=== PATIENT | male | born 2000 | race African-American/Black ===

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

== ENCOUNTER 2018-06-02 01:42 | Emergency (ER) | payer OTHER ==
[~2018-06-02] VITALS: Ht 182.9 cm; Wt 59.0 kg
[2018-06-02 01:52] VITALS: BP 138/74
== END 2018-06-02 06:25 | disposition left against medical advice (07) ==
LOC: EDBD 01:42 → ER 01:45
DX: R06.02 Shortness of breath (principal); Z53.21 Procedure and treatment not carried out due to patient leaving prior to being seen by health care provider
CPT/HCPCS: 71045

== ENCOUNTER 2018-12-30 19:44 | Inpatient (IN) | payer OTHER, MEDICAID ==
[~2018-12-30] VITALS: Ht 182.9 cm; Wt 67.1 kg
[~2018-12-30 19:44] MED LIST changes: -INSLANTI; +INSLANTI SUBCUT; -NOVALOG; +NOVALOG SUBCUT
[2018-12-30 21:24] LABS: Urine Bacteria FEW /hpf (None Seen); Urine Blood Negative /uL (Negative); Urine Specific Gravity 1.027 (1.001-1.035); Urine WBC 13 /hpf (0 - 3)
[2018-12-30 21:38] LABS: Amphetamine Screen, Urine NEGATIVE (NEGATIVE); Cannabinoid Screen, Urine NEGATIVE (NEGATIVE)
[2018-12-30 21:40] LABS: Barbiturate Scree,Urine NEGATIVE (NEGATIVE); Benzodiazephine Screen, Urine NEGATIVE (NEGATIVE); Cocaine Screen, Urine NEGATIVE (NEGATIVE); Opiate Scree,Urine NEGATIVE (NEGATIVE); Phencyclidine Screen, Urine NEGATIVE (NEGATIVE)
[2018-12-30 21:42] LABS: Basophils # (auto) 0 uL; Basophils % (auto) 0.9 % (0.0-2.0); Eosinophils # (auto) 0 uL; Eosinophils % (auto) 0.2 % (0.0-7.0); Hematocrit 40.8 % (41.0-53.0); Hemoglobin 13.3 g/dL (13.5-17.5); Lymphocytes # (auto) 0.8 uL; Lymphocytes % (auto) 17.5 % (10.0-50.0); Mean Corpuscular Hemoglobin 31.6 pg (28.0-32.0); Mean Corpuscular Hgb Conc. 32.7 g/dL (32.0-36.0); Mean Corpuscular Volume 96.8 fL (80.0-100.0); Monocytes # (auto) 0.3 uL; Neutrophils # (auto) 3.5 uL; Neutrophils % (auto) 75.4 % (37.0-80.0); Nucleated Red Blood Cells % 0.1 %; Platelet Count (auto) 262 10^3/uL (140-450); Red Blood Cells 4.22 10^6/uL (4.5-5.90); Red Cell Distribution Width 14.2 % (11.8-14.3); White Blood Cell 4.7 10^3/uL (4.4-10.8)
[2018-12-30 21:55] LABS: Albumin 3.8 g/dL (3.4-5.0); Potassium 4.7 mmol/L (3.5-5.1)
[2018-12-30 22:04] LABS: BUN/Creatinine Ratio 9.1; Bilirubin, Total 1.4 mg/dL (0.2-1.0); Total Protein 7.4 g/dL (6.4-8.2)
[2018-12-30] MEDS: SODIUM CHLORIDE 0.9% 1,000 ML IV SCH (22:42)
[2018-12-30] MEDS ORDERED: DEXTROSE (50%) 50ML SYRG IV PRN (22:45)
[2018-12-30] MEDS ORDERED: InsuLIN REG 1unit/0.01ml Soln (100units/ml) IV ONE (22:45)
[2018-12-30] MEDS ORDERED: SODIUM CHLORIDE 0.9% 2,000 ML IV ONE (22:45)
[2018-12-30] MEDS: InsuLIN R (HUMAN) 100 UNITS in SODIUM CHL 0.9% 99 ML IV SCH (23:09)
[2018-12-30 23:30] LABS: Magnesium 2.3 mg/dL (1.6-2.6)
[2018-12-30 23:46] LABS: Urine Bacteria NONE SEEN /hpf (None Seen); Urine Blood Negative /uL (Negative); Urine Specific Gravity 1.027 (1.001-1.035); Urine WBC 1 /hpf (0 - 3)
[2018-12-30] MEDS: ACCU-CHEK COMFORT CURVE STRIP VI SCH (23:56)
[2018-12-31 00:01] LABS: Alcohol, Urine < 3.0 mg/dL (0-5); Amphetamine Screen, Urine NEGATIVE (NEGATIVE); Barbiturate Scree,Urine NEGATIVE (NEGATIVE); Benzodiazephine Screen, Urine NEGATIVE (NEGATIVE); Cannabinoid Screen, Urine NEGATIVE (NEGATIVE); Cocaine Screen, Urine NEGATIVE (NEGATIVE); Opiate Scree,Urine NEGATIVE (NEGATIVE); Phencyclidine Screen, Urine NEGATIVE (NEGATIVE)
[2018-12-31] MEDS: SODIUM CHLORIDE 0.9% 1,000 ML IV SCH (00:56)
[2018-12-31] MEDS: ACCU-CHEK COMFORT CURVE STRIP VI SCH ×8 (01:11→12:52)
[2018-12-31] MEDS ORDERED: TEMAZEPAM 15 MG CAP PO PRN (02:30)
[2018-12-31] MEDS ORDERED: MORPHINE SULF INJ 2 MG/ML SYRINGE 1ML IV PRN (02:30)
[2018-12-31] MEDS ORDERED: ACETAMINOPHEN 325 MG TAB PO PRN (02:30)
[2018-12-31] MEDS ORDERED: ONDANSETRON HCL 4 MG/2 ML VIAL IV PRN (02:30)
[2018-12-31] MEDS ORDERED: NITROGLYCERIN 0.4 MG SL TAB SL PRN (02:30)
[2018-12-31] MEDS ORDERED: SODIUM CHLORIDE 0.9% 1,000 ML IV SCH ×2 (02:42→04:42)
[2018-12-31] MEDS: D5W/SOD CHL 0.45% 1,000 ML IV SCH ×2 (02:55→09:48)
[2018-12-31] MEDS: InsuLIN R (HUMAN) 100 UNITS in SODIUM CHL 0.9% 99 ML IV SCH ×2 (05:04→06:38)
[2018-12-31 05:10] LABS: BUN/Creatinine Ratio 6.5; Calcium 8.1 mg/dL (8.5-10.1); Potassium 3.6 mmol/L (3.5-5.1)
[2018-12-31] MEDS ORDERED: FAMOTIDINE 20 MG TAB PO SCH (10:00)
[2018-12-31] MEDS ORDERED: TOPIRAMATE 100 MG TAB PO SCH (10:00)
[2018-12-31] MEDS ORDERED: PHENYTOIN SODIUM 100 MG CAP PO SCH (10:00)
[2018-12-31] MEDS ORDERED: POTASSIUM CHL 20 Meq TABLET PO ONE (10:45)
[2018-12-31] MEDS ORDERED: D5W/SOD CHL 0.45%/KCL 40MEQ 1,000 ML IV SCH (10:45)
--- NOTE | 2018-12-31 11:27 | NUR ---
Telemetry admit from ER CAIO ISAAC admitted to Telemetry unit . Patient oriented to Tila Pearson, primary RN, unit, room, bed, and unit policies regarding patient care and visiting hours. Patient now on continuous telemetry monitoring, tele box #32 and telemetry reading on arrival to unit is SR. Patient weighed by bedscale and encouraged to call if they need something. All questions and concerns addressed, patient verbalized understanding.
[2018-12-31 11:28] LABS: BUN/Creatinine Ratio 8.2; Calcium 8.1 mg/dL (8.5-10.1); Potassium 3.4 mmol/L (3.5-5.1)
--- NOTE | 2018-12-31 12:38 | NUR ---
Paged for Dr. Pabon, regarding patient's ACCU checks. Awaiting call back.
[2018-12-31 12:51] VITALS: BP 127/71
[2018-12-31] MEDS ORDERED: DEXTROSE (50%) 50ML SYRG IV PRN (14:30)
[2018-12-31] MEDS ORDERED: INSULIN LANTUS (GLARGINE) 1 /0.01ml (100units/ml) SC ONE (14:30)
--- NOTE | 2018-12-31 14:30 | NUR ---
IV removal Patient c/o pain on left arm, IV site. Patient requested Iv to be discontinued. IV DC'd with clean sterile technique, catheter fully intact. Pressure dressing applied to site. Patient tolerated well.
[2018-12-31] MEDS ORDERED: InsuLIN REG 1unit/0.01ml Soln (100units/ml) SC SCH (16:00)
[2018-12-31 17:00] VITALS: BP 117/71
[2018-12-31 17:33] LABS: BUN/Creatinine Ratio 7.4; Calcium 7.8 mg/dL (8.5-10.1); Potassium 4.2 mmol/L (3.5-5.1)
[2018-12-31] MEDS ORDERED: SOD CHL 0.45% WITH 20MEQ KCL 1,000 ML IV SCH (18:15)
[2018-12-31] MEDS ORDERED: ACCU-CHEK COMFORT CURVE STRIP VI SCH ×2 (18:30)
[2018-12-31 19:35] LABS: BUN/Creatinine Ratio 4.9; Calcium 8.6 mg/dL (8.5-10.1); Potassium 3.9 mmol/L (3.5-5.1)
--- NOTE | 2018-12-31 19:35 | NUR ---
Opening Shift Note Upon entering room , pt is standing and hugging his "fiance" and crying. When asked , Pt will not verbalize to this RN what his concerns are. No other s/s of any distress noted at this time and explained to pt that privacy will be given at this time and will return to round on him. Pt still non verbal at this time and no eye contact.
--- NOTE | 2018-12-31 20:00 | NUR ---
Rounding on pt and pt found sitting up in bed and he has thrown his telemetry box and leads on the floor. Asked pt to explain what is wrong and what his concerns are and no answer from pt. Pt is refusing to communicate at this time. Explained to pt that if he can express his concerns that staff may be able to help. Pt still not responding, but picked the tele box up off of the floor and stated that he was sorry.
--- NOTE | 2018-12-31 20:22 | NUR ---
SENT OUT A PAGE TO DR. Jesus Alberto CAMACHO RE: UPDATE ON PT'S CHEMISTRY DRAW AT 1900. AWAITING CALL BACK. PRIMARY RN, JULIAN CHAVEZ.
--- NOTE | 2018-12-31 20:30 | NUR ---
Finger stick blood sugar = 99 at this time. Pt is still not willing to communicate with staff. Explained visiting hours r/t nafisa is still at bedside and pt states, " If she leaves, I leave." Explained to pt that if he leaves he will be leaving against medical advice and that he needs to stay and be cared for and he stated again, "If she leaves, I leave." Also notified booky Jackie of this situation.
--- NOTE | 2018-12-31 21:20 | NUR ---
Pt states that, " I am going crazy and I want to go home now." Explained risks of leaving AMA to the pt and that his condition is serious and pt verbalizes understanding and states that, " If worse comes to worse , I will come back."
--- NOTE | 2018-12-31 21:46 | NUR ---
Pt signed AMA and left the hospital ambulatory accompanied by his fiance.
[2018-12-31 21:56] VITALS: BP 112/72
[2018-12-31] MEDS ORDERED: INSULIN LANTUS (GLARGINE) 1 /0.01ml (100units/ml) SC SCH (22:00)
== END 2018-12-31 22:06 | disposition left against medical advice (07) | DRG 420 ==
LOC: ER 19:48 → TELE 19:49 → TELE-CENTR 12-31 12:46
PROVIDERS: ADMIT Nurse Practitioner; ATTEND Internal Medicine Nephrology
DX: E10.10 Type 1 diabetes mellitus with ketoacidosis without coma (principal); E83.39 Other disorders of phosphorus metabolism; E87.1 Hypo-osmolality and hyponatremia; F10.129 Alcohol abuse with intoxication, unspecified; E86.0 Dehydration; R16.0 Hepatomegaly, not elsewhere classified; Z88.1 Allergy status to other antibiotic agents; Z79.899 Other long term (current) drug therapy; Y90.0 Blood alcohol level of less than 20 mg/100 ml; Z53.21 Procedure and treatment not carried out due to patient leaving prior to being seen by health care provider
CPT/HCPCS: 36415; 36600; 74176; 80048; 80053; 80307; 81001; 82010; 82150; 82805; 82962; 83036; 83690; 83735; 83930; 84100; 85025; 96361; 96365; 96375; G0378; J1815

== ENCOUNTER 2023-08-02 08:03 | Emergency (ER) | payer MEDICAID ==
[~2023-08-02] VITALS: Ht 180.3 cm; Wt 53.1 kg
[~2023-08-02 08:03] MED LIST changes: +PHEN100C; -PHEN100C70
[2023-08-02 09:30] VITALS: BP 153/101; PULSE 91; RESP 18; TEMP 97.8; O2SAT 100
[2023-08-02] MEDS ORDERED: BENZ100C97 PO (11:40)
[2023-08-02 12:03] LABS: COVID19 ANTIGEN SOFIA FIA NEGATIVE (NEGATIVE); Rapid Influenza A Negative (Negative); Rapid Influenza B Negative (Negative)
[2023-08-02] MEDS ORDERED: OSEL75CA5 PO (12:53)
== END 2023-08-02 11:56 | disposition home or self-care (01) ==
LOC: ER 08:03
DX: J11.1 Influenza due to unidentified influenza virus with other respiratory manifestations (principal); R05.9 Cough, unspecified; E11.9 Type 2 diabetes mellitus without complications; F15.90 Other stimulant use, unspecified, uncomplicated; Z88.8 Allergy status to other drugs, medicaments and biological substances; Z79.899 Other long term (current) drug therapy; Z20.822 Contact with and (suspected) exposure to COVID-19
CPT/HCPCS: 36415; 71045; 87426; 87804

== ENCOUNTER 2024-01-26 02:02 | Emergency (ER) | payer MEDICAID ==
[~2024-01-26] VITALS: Ht 172.7 cm; Wt 59.1 kg
[~2024-01-26 02:02] MED LIST changes: +BENZ100C97 PO; +OSEL75CA5 PO
[2024-01-26 02:09] VITALS: BP 168/75; PULSE 90; RESP 20; O2SAT 99
== END 2024-01-26 02:13 | disposition left against medical advice (07) ==
LOC: ER 02:02 → EDBD 02:02 → ER 02:13
DX: G40.909 Epilepsy, unspecified, not intractable, without status epilepticus (principal); E11.65 Type 2 diabetes mellitus with hyperglycemia; Z79.899 Other long term (current) drug therapy; Z88.0 Allergy status to penicillin